=== PATIENT | male | born 1935 | race Caucasian/White ===

== ENCOUNTER 2021-05-12 13:07 | Inpatient (IN) | payer OTHER, MEDICARE ==
[~2021-05-12] VITALS: Ht 180.3 cm; Wt 125.1 kg
[~2021-05-12 13:07] MED LIST: ASPI81CH PO; ASPI81EC PO; CEPH500 PO; COENZYME Q-1030 MG PO; COLCHICINE0.6 MG PO; Coumadin4 MG PO; FISH1000 PO; HYDR1TAB94 PO; IBUP800 PO; INS70/30PN SC; INS70/30PN SUBQ; INSU7030P SUBQ; LOSA25 PO; METF500 PO; Omeprazole20 M1; PANT40 PO; RANI150 PO; SIMV10 PO; SITA100T2 PO; SOLI5 PO; TORS10 PO; UBID10 PO; UBID100 PO; Zofran Odt4 MG SL
[2021-05-12 13:38] LABS: BASOPHILS ABSOLUTE AUTO 0.05 K/mm3 (0.00-0.23); BASOPHILS PERCENT AUTO 1 % (0-2); EOSINOPHILS PERCENT AUTO 3 % (0-6); Hematocrit 39.5 % (37.0-53.0); Hemoglobin 13.6 g/dL (13.5-17.5); IMMATURE GRAN ABSOLUTE AUTO 0.03 K/mm3 (0.00-0.10); IMMATURE GRAN PERCENT AUTO 0 % (0-1); LYMPHOCYTES ABSOLUTE AUTO 2.97 K/mm3 (0.84-5.20); LYMPHOCYTES PERCENT AUTO 29 % (21-46); MONOCYTES ABSOLUTE AUTO 0.64 K/mm3 (0.16-1.47); MONOCYTES PERCENT AUTO 6 % (4-13); Mean Corpuscular HGB 33.4 pg (26.0-34.0); Mean Corpuscular HGB Conc 34.4 g/dL (31.5-36.5); Mean Corpuscular Volume 97 fL (80-100); Mean Platelet Volume 11.8 fL (9.1-12.4); NEUTROPHILS ABSOLUTE AUTO 6.21 K/mm3 (1.96-9.15); NEUTROPHILS PERCENT AUTO 61 % (41-73); Platelet Count 199 K/mm3 (150-400); RDW Coefficient Variation 13.5 % (11.7-14.2); RDW Standard Deviation 47.8 fL (35.1-46.3); Red Blood Cell Count 4.07 M/mm3 (4.30-5.90)
[2021-05-12 13:52] LABS: Alanine Aminotransfer (ALT/SGP 22 U/L (12-78); Albumin, Blood 3.4 g/dL (3.4-5.0); Albumin/Globulin Ratio 1.1 (0.8-1.8); Alk Phos 58 U/L (50-136); Anion Gap 5 mmol/L (6-16); Aspartate Aminotrans (AST/SGOT 11 U/L (12-37); Bilirubin, Total 0.6 mg/dL (0.1-1.0); Blood Urea Nitrogen 26 mg/dL (8-24); Bun/Creatinine Ratio 20.2 (12.0-20.0); CO2, Blood 27 mmol/L (21-32); Calcium, Blood 8.3 mg/dL (8.5-10.1); Chloride, Blood 108 mmol/L (98-108); Creatinine, Blood 1.29 mg/dL (0.60-1.20); Globulin, Blood 3.1 g/dL (2.2-4.0); Glomerular Filtration Rate 53 (60-); Glucose, Blood 92 mg/dL (70-99); Potassium, Blood 4.1 mmol/L (3.5-5.5); Sodium, Blood 140 mmol/L (136-145); Total Protein, Blood 6.5 g/dL (6.4-8.2); Troponin I <0.015 ng/mL (0.000-0.040)
[2021-05-12 14:32] LABS: International Normalized Ratio 2.31
[2021-05-12 14:41] LABS: Influenza A, PCR NEGATIVE (NEGATIVE); Influenza B, PCR NEGATIVE (NEGATIVE); Resp Syncytial Virus, PCR NEGATIVE (NEGATIVE); SARS-Cov-2 (COVID-19) PCR, MMC NEGATIVE (NEGATIVE)
[2021-05-12 15:22] LABS: Free Thyroxine 0.86 ng/dL (0.70-1.60); Thyroid Stimulating Hormone 3.04 uIU/mL (0.360-4.800)
--- NOTE | 2021-05-12 19:52 | NUR ---
ASSUMED CARE OF PT AT 1915. REPORT RECEIVED AT BEDSIDE. PT PRESENTS IN BED RIGHT IJ WITH TRANSVENOUS PACER ACCESS. NO HEMATOMA OR OOZING TO NOTE. PT ALERT AND ORIENTED. PLEASANT AND COOPERATIVE WITH CARE AND ASSESSMENT. DENIES CHEST PAIN OR PRESSURE. WILL REVIEW CHART AND PLAN OF CARE FOR THIS PT.
--- NOTE | 2021-05-13 | NUR ---
PT HAS BEEN TOUCHING THE INSERTION SITE OF HIS TRANSVENOUS PACER. DID NOTE THAT THE OPSITE OVER SITE WAS LIFTED. CLEANED SITE WITH CHLORAPREP, AND PLACED REINFORCEMENT OF TEGRADERM. HAD NOTICED PT WAS HAVE MORE EPISODES OF PACER NOT CAPTURING. DID INCREASE SETTINGS ON TRANSVENOUS WITHOUT MUCH RESULTS. DID CALL DR VALADEZ AND HE CAME TO ROOM. HE ADVANCED PACER WIRES AND INCREASED TRANSVENOUS PACER TO 70/5/7 WITH IMPROVEMENT IN CAPTURE. DID HAVE SOME UNCAPTURED SPIKES AND DR CALDWELL STATED THAT HE WAS OK WITH THIS LONG PT'S VITALS REMAINED STABLE. AT THIS TIME, VSS. PT ACKNOWLEDGES THAT HE NEEDS TO NOT TOUCH ANY OF THE WIRES.
[2021-05-13 05:43] LABS: BASOPHILS ABSOLUTE AUTO 0.05 K/mm3 (0.00-0.23); BASOPHILS PERCENT AUTO 1 % (0-2); EOSINOPHILS ABSOLUTE AUTO 0.23 K/mm3 (0.00-0.68); EOSINOPHILS PERCENT AUTO 2 % (0-6); Hematocrit 38.9 % (37.0-53.0); Hemoglobin 13.2 g/dL (13.5-17.5); IMMATURE GRAN ABSOLUTE AUTO 0.04 K/mm3 (0.00-0.10); IMMATURE GRAN PERCENT AUTO 0 % (0-1); LYMPHOCYTES ABSOLUTE AUTO 1.66 K/mm3 (0.84-5.20); LYMPHOCYTES PERCENT AUTO 15 % (21-46); MONOCYTES ABSOLUTE AUTO 0.72 K/mm3 (0.16-1.47); MONOCYTES PERCENT AUTO 7 % (4-13); Mean Corpuscular HGB 33.2 pg (26.0-34.0); Mean Corpuscular HGB Conc 33.9 g/dL (31.5-36.5); Mean Corpuscular Volume 98 fL (80-100); Mean Platelet Volume 11.6 fL (9.1-12.4); NEUTROPHILS ABSOLUTE AUTO 8.24 K/mm3 (1.96-9.15); NEUTROPHILS PERCENT AUTO 75 % (41-73); Platelet Count 171 K/mm3 (150-400); RDW Coefficient Variation 13.3 % (11.7-14.2); RDW Standard Deviation 47.5 fL (35.1-46.3); Red Blood Cell Count 3.97 M/mm3 (4.30-5.90); White Blood Cell Count 10.94 K/mm3 (4.00-11.30)
[2021-05-13 05:54] LABS: International Normalized Ratio 1.88; Prothrombin Time Results 18.9 Sec (9.7-11.5)
--- NOTE | 2021-05-13 06:10 | NUR ---
PT HAS CONTINUED WITH TRANSVENOUS PACER. HAS OCCASSIONAL MISSED CAPTURES. SEE CHART FOR EXAMPLES. DR VALADEZ AWARE. PT TO HAVE PACER PLACEMENT TODAY. VSS REMAIN STABLE THROUGHOUT THE NIGHT. TRANSVENOUS PACER REMAINS SET . PT REMAINS WITH SOME TENDERNESS AT INSERTION SITE. WILL CONTINUE TO MONITOR PT, AND WILL REPORT OFF TO ONCOMING RN.
[2021-05-13 06:14] LABS: Anion Gap 6 mmol/L (6-16); Blood Urea Nitrogen 23 mg/dL (8-24); Bun/Creatinine Ratio 20.7 (12.0-20.0); CO2, Blood 24 mmol/L (21-32); Calcium, Blood 8.1 mg/dL (8.5-10.1); Chloride, Blood 111 mmol/L (98-108); Creatinine, Blood 1.11 mg/dL (0.60-1.20); Glomerular Filtration Rate >60 (60-); Glucose, Blood 108 mg/dL (70-99); Magnesium, Blood 2.2 mg/dL (1.6-2.4); Potassium, Blood 4.2 mmol/L (3.5-5.5); Sodium, Blood 141 mmol/L (136-145); Troponin I <0.015 ng/mL (0.000-0.040)
--- NOTE | 2021-05-13 09:29 | NUR ---
ASSUMED CARE THIS AM. REPORT BEDSIDE. PT RESTING COMFORTABLE AND IN NO DISTRESS BEING TRANSV PACED AT 70, MA 3, SENCE 3. VITALS WNL. WILL CONTINUE TO MONITOR. DR ALBA BY TO SE PT WELL AND ORDER TO HOLD BREAKFAST THIS PACEMAKER PLACEMENT COULD BE THIS MORNING.
--- NOTE | 2021-05-13 11:52 | NUR ---
Pt. is a alert and sitting up watching television in his recliner. Pt. quickly displays unsettledness because he is hungry. Normalize the pt. experience and suggest there is a theraputic reason. Inquire about pts. morales experience. Explore issues of morales and belief. Pt. displayed evidence of reduced stress and verbalized his morales source. Prayed with pt. Pt. verbalized gratitude and shook my hand. Confirmed with ICU nurse that his imposed fasting was in preparation for a procedure, and that they were aware of the pts. discomfort.
--- NOTE | 2021-05-13 15:21 | NUR ---
pT TO PRECINCT COMMANDING OFFICER FOR PACER PLACEMENT AT 1500
--- NOTE | 2021-05-13 18:33 | NUR ---
PT RETURNED FROM EP LAB, SLEEPY AND IN GOOD SPIRITS. PT VITALS WNL, PACE SET AT RATE OF 60. PT IN A PACED RYH AT THIS TIME AND VITALS ARE WNL. WILL CONTINUE TO MONITOR
--- NOTE | 2021-05-13 20:00 | NUR ---
ASSUMED CARE OF PT AT 1915. REPORT RECEIVED AT BEDSIDE. PT PRESENTS IN BED. FIRST OF HIS QUESTIONS WAS TO WHEN HE WAS GOING TO BE ABLE TO EAT. TRAY WAS HELD SECONDARY TO PROCEDURE. WILL OBTAIN MEAL FOR PATIENT AT THIS TIME. PER MONITOR, PT BEING PACED MOST VENTRICULARLY, AND OCCASSIONAL ATRIAL PACING. PT STATES PACER SITE TENDER. PRESSURE DRESSING OVER SITE. PT REMINDED OF RESTRICTIONS TO MOVEMENT WITH LEFT ARM RELATED TO POST PACER PLACEMENT. PT VERBALIZES UNDERSTANDING. WILL CONTINUE TO MONITOR PT, WILL REIVEW CHART AND PLAN OF CARE FOR THIS PT.
--- NOTE | 2021-05-13 21:50 | NUR ---
PT'S VSS. CONTINUES WITH PACED RHYTHM. CALL TO DR CALDWELL WITH ORDERS FOR STATUS CHANGE TO PCU. THIS DISCUSSED WITH PT AND HE IS IN AGREEMENT. PT TRANSFERS TO PCU ROOM 2 VIA WHEELCHAIR. PT'S BELONGINGS TRANSFERRED WELL. REPORT WAS GIVEN TO LEONORA GALAN.
--- NOTE | 2021-05-14 05:07 | NUR ---
TELEMETRY INFORMED RN THAT AROUND 0200 PATIENT BEGAN HAVING PACEMAKER SPIKES WITHOUT A BEAT/QRS FOLLOWING. THIS WAS ALSO AROUND THE TIME PATIENT TRIED TO GET OOB UNASSISTED AND WAS USING HIS ARM THAT SLING IS ON HE IS FORGETFUL AT TIMES. POSITIONED SLING CORRECTLY AND ASSSITED TO BSC. HR DID DROP TO HIGH 40'S SHORTLY AFTER THIS FOR A MIN. CURRENT RATE OF 60 AND VSS. SOME BRUISING BELOW PRESSURE DRESSING NOTED. EKG DONE. DR. CAICEDO MADE AWARE OF THESE CHANGES. SENT PHOTO OF EKG AND PACEMAKER SITE. MD ORDERED REMOVAL OF PRESSURE DRESSING AND ICE TO BE APPLIED. SCANT DRIED DRAINAGE TO BANDAGE. EKG TO BE ORDERED PRN IF ANY OTHER CHANGES OCCUR. PATIENT RESTING COMFORTABLY AT THIS AND WILL CONTINUE TO MONIOTR.
[2021-05-14 05:23] LABS: International Normalized Ratio 1.31; Prothrombin Time Results 13.5 Sec (9.7-11.5)
--- NOTE | 2021-05-14 06:26 | NUR ---
SHIFT SUMMARY PATIENT TRANSFERRED FROM ICU AT APPROX. 2230 AND FOUND TO BE A&OX4 WITH SOME GENERALIZED WEAKNESS. PACER SITE TO LEFT CHEST WITH PRESSURE DRESSING IN PLACE UPON ARRIVAL NOW JUST DRESSING AND ICE PACK PER MD ORDER. BRUISING AROUND SITE BUT NO SWELLING.VSS. ON RA. REMAINED PACED WITH GOOD CAPTURE UNTIL AROUND 0200 WHEN PATIENT HAD ATTEMPTED TO LEAVE BED BY HIMSELF AND WAS USING LEFT ARM THAT WAS IN SLING. REMINDED NOT TO USE THIS ARM FREQUENTLY BUT CONTINUES TO FORGET. SEE PREVIOUS NOTES FOR PACER EVENT DETAILS. PAIN TO SITE AT TOLERABLE LEVEL AND REFUSED NEED FOR MEDICATION. DYSPNEA ON EXERTION NOTED. VOIDING WELL PER URINAL OR BSC. FREQUENCY AND URGENCY RELATED TO LASIX. A LITTLE UNSTEADY AT TIMES AND UP WITH ONE ASSIST AND WALKER IN ROOM. REMINDED TO CALL RN AND FALL PRECAUTIONS IN PLACE. DR. CHEN TO INFORM MED REPS OF NEED FOR PACER INTEROGATION TODAY. NO ACUTE CONCERNS AT THIS TIME. WILL CONTINUE PLAN OF CARE UNTIL REPORT GIVEN TO DAYSHIFT RN.
--- NOTE | 2021-05-14 11:46 | NUR ---
Pt. was sitting up in a recliner. Welcomed my visit. Pt. was unsettled that there was a problem with his pacemaker. Pt. assumes it was because he had moved his arm which was in a sling. Listened empathetically. Established rapport. Facilitated a life review. Explored pts. morales and belief. Pt. spoke about his morales. Prayed with pt. Pt. displayed evidence of engagement and agreement. Pt. verbalized gratitude for visit, and welcomed me to return.
--- NOTE | 2021-05-14 13:15 | NUR ---
UPDATE PT LEFT FOR PROCEDURE AT 1313 VIA HOSPITAL BED AND OCCOMPANIED BY 1 RN. PT ON RA. PT ABLE TO AMBULATE TO TOILET BEFORE LEAVING FOR PROCEDURE.
--- NOTE | 2021-05-14 15:26 | NUR ---
UPDATE PT ARRIVE FROM [employer]OL TEACHER AT 1530 OCCOMPANIED BY 2 RN. PT LETHARGIC FROM MEDICATIONS DURING PROCEDURE.
--- NOTE | 2021-05-14 16:01 | NUR ---
Initial Interview with [facility] [employer] Torch Solderer 1. Who did you speak with? Spoke with patient 2. What is the patient's prior level of functions? Patient lives independently with ex- (who uses a wheelchair and needs assistance with ADLs). He is able to completed ADLs with minimal assistance; uses a cane daily. Patient lives in a single story dwelling with a ramp at the front entrance. Patient is looking to hire a multimedia author caregiver in the home, he presently has a carton folder come in once a week to clean and do laundry, but he does majority of the laundry, housekeeping, and cooking meals. Patient has 12 grandkids total. His son lives in [place] and helps when needed. Patient has a stable support network. 3. Is the patient and/or family able to provide transportation to and from doctor's appointments and picking table worker prescriptions? 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 Does patient still drive? Yes 5. POA/PCP/NOK: NOK: Daughter Janiya [phone]/PCP [facility] Dr. Kelly Hanna 6. Discharge goals: TBD/Home/no preference for Home Health agency -Medication Management: self-management -Preferred Pharmacy: [facility] -Housekeeping need: patient performs cooking and cleaning at his residence; carton folder one day per week. 7. List barriers to discharge: None known at this time 8. Discharge Plan: Home/TBD 9. PCP Follow up appointment: Will be scheduled within seven calendar days of discharge 10. Other Notes: patient is a and has no service connected disability, but encouraged to apply for benefits.
--- NOTE | 2021-05-14 17:47 | NUR ---
SHIFT SUMMARY PT A/O X4 AND COOPERATIVE OF CARE. VSS THROUGHOUT SHIFT WITH O2 SATS >93% ON RA. PT WAS NPO FOR FIRST HALF OF SHIFT FOR PROCEDURE IN WIND FIELD MANAGER. PT RETURNED FROM PROCEDURE AND WAS LETHARGIC FROM MEDICATIONS GIVEN DURING PROCEDURE. PT REPORTED NAUSEA WHILE SHOULDER IMOBILIZER WAS BEING PLACED. EMESIS BAG GIVEN TO PT AND SUCTION HOOKED UP AND AT THE BEDSIDE, ZOFRAN GIVEN PER EMAR. SHOULDER IMOBILIZER IN PLACE. ICE PACKS ON PT SURGICAL SITE PER DR REQUEST. NO REPORT OF CHEST PAIN/PRESSURE THROUGHOUT SHIFT. NO REPORT OF OF DYSPNEA/SOB THROUGHOUT SHIFT.
[2021-05-15 05:34] LABS: International Normalized Ratio 1.11; Prothrombin Time Results 11.6 Sec (9.7-11.5)
--- NOTE | 2021-05-15 06:47 | NUR ---
SHIFT SUMMARY PATIENT FOUND TO BE A&OX4 WITH SOME GEN WEAKNESS. A LITTLE IRRITABLE WITH THE FREQUENT INTERUPTIONS OF SLEEP. VSS. REMAINED 100% PACED AT 60 BPM MOST OF SHIFT. DID NOTICE ON MORNING EKG MAYBE SOME UNDERLYING A FLUTTER/AFIB. VSS. ON RA. TOLERATING ADA DIET. IV ABX INFUSED PER ORDER. ICE AND PRESSURE BAG TO PACER SITE AND BRUISING IS STABLE. ARM IMMOBILIZER IN PLACE AND PATIENT MORE COMPLIANT WITH INSTRUCTIONS TONIGHT. VOIDING WELL PER URINAL. NO ACUTE CONCERNS AT THIS TIME. WILL CONTINUE PLAN OF CARE UNTIL REPORT GIVEN TO GUILLAUME LEA.
[2021-05-15] MEDS ORDERED: CEPH500 PO (13:05)
--- NOTE | 2021-05-15 15:30 | NUR ---
DISCHARGE UPDATE PT DISCHARGE PACKET GONE OVER WITH PT AND PT DAUGHTER AT 1500. PT DISCHARGED AT 1512 AND LEFT UNIT VIA WHEELCHAIR. PT ABLE TO TRANSFER SELF TO AND FROM WHEELCHAIR. PT DISCHARGE PACKET IN BAG ALONG WITH PT PERSONAL BELONGINGS.
[2021-05-16] MEDS ORDERED: DOCUZEN 8.6-501 EACH PO (18:52)
--- NOTE | 2021-05-17 08:24 | NUR ---
Per Dr. Pandya discharge appropriate. Patient was discharged on 05/15/21. Patient does not oppose discharge. Patient discharged to residence. Transportation provided by family. DME: patient has a cane he uses daily. Follow up appointments needed with cardiology/pacemaker clinic and Dr. Robb. [facility] will contact patient to schedule hospital follow-ups. Patient has a stable support network. No barriers to discharge.
== END 2021-05-15 15:15 | disposition home or self-care (01) | DRG 242 ==
LOC: ER 13:07 → MEDS 13:08 → ICUW 13:08 → PCU 05-13 21:49
PROVIDERS: Internal Medicine Cardiovascular Disease; Physician Assistant; ADMIT Internal Medicine
PROC: 5A1223Z Performance of Cardiac Pacing, Continuous (ICD-10-PCS; 2021-05-12)
PROC: 0JH606Z Insertion of Pacemaker, Dual Chamber into Chest Subcutaneous Tissue and Fascia, Open Approach (ICD-10-PCS; principal; 2021-05-13)
PROC: 02H64JZ Insertion of Pacemaker Lead into Right Atrium, Percutaneous Endoscopic Approach (ICD-10-PCS; 2021-05-13)
PROC: 02HK4JZ Insertion of Pacemaker Lead into Right Ventricle, Percutaneous Endoscopic Approach (ICD-10-PCS; 2021-05-13)
PROC: 5A1223Z Performance of Cardiac Pacing, Continuous (ICD-10-PCS; 2021-05-13)
PROC: 02WA0MZ Revision of Cardiac Lead in Heart, Open Approach (ICD-10-PCS; 2021-05-14)
DX: I44.2 Atrioventricular block, complete (principal); I50.33 Acute on chronic diastolic (congestive) heart failure; E11.9 Type 2 diabetes mellitus without complications; Z20.822 Contact with and (suspected) exposure to COVID-19; Z53.20 Procedure and treatment not carried out because of patient's decision for unspecified reasons; E78.5 Hyperlipidemia, unspecified; M10.9 Gout, unspecified; M54.50 Low back pain, unspecified; G89.29 Other chronic pain; E66.9 Obesity, unspecified; F17.210 Nicotine dependence, cigarettes, uncomplicated; K21.9 Gastro-esophageal reflux disease without esophagitis; N40.0 Benign prostatic hyperplasia without lower urinary tract symptoms; I08.1 Rheumatic disorders of both mitral and tricuspid valves; I48.0 Paroxysmal atrial fibrillation; I11.0 Hypertensive heart disease with heart failure; I48.92 Unspecified atrial flutter; Z68.37 Body mass index [BMI] 37.0-37.9, adult; Z88.2 Allergy status to sulfonamides; Z88.8 Allergy status to other drugs, medicaments and biological substances; Z79.4 Long term (current) use of insulin; Z79.82 Long term (current) use of aspirin; Z79.899 Other long term (current) drug therapy
CPT/HCPCS: 0241U; 33208; 33210; 33215; 36415; 71045; 71046; 76937; 80048; 80053; 82947; 83735; 83880; 84439; 84443; 84484; 85025; 85610; 93005; 93010; 99152; 99153; 99285-25; A9270; C1769; C1781; C1785; C1894; C1898; C8929; G0378; J0690; J1580; J1644; J1650; J1940; J2250; J2405; J3010; J7030; J7040; J7050; Q9957; Q9967

== ENCOUNTER 2021-05-16 16:05 | Emergency (ER) | payer OTHER, MEDICARE ==
[~2021-05-16] VITALS: Ht 180.3 cm; Wt 122.5 kg
[2021-05-16 16:56] LABS: BASOPHILS PERCENT AUTO 1 % (0-2); EOSINOPHILS ABSOLUTE AUTO 0.48 K/mm3 (0.00-0.68); EOSINOPHILS PERCENT AUTO 3 % (0-6); Hematocrit 42.1 % (37.0-53.0); Hemoglobin 14.5 g/dL (13.5-17.5); IMMATURE GRAN ABSOLUTE AUTO 0.06 K/mm3 (0.00-0.10); IMMATURE GRAN PERCENT AUTO 0 % (0-1); LYMPHOCYTES ABSOLUTE AUTO 2.93 K/mm3 (0.84-5.20); LYMPHOCYTES PERCENT AUTO 21 % (21-46); MONOCYTES PERCENT AUTO 8 % (4-13); Mean Corpuscular HGB Conc 34.4 g/dL (31.5-36.5); Mean Corpuscular Volume 96 fL (80-100); Mean Platelet Volume 11.5 fL (9.1-12.4); NEUTROPHILS ABSOLUTE AUTO 9.56 K/mm3 (1.96-9.15); NEUTROPHILS PERCENT AUTO 67 % (41-73); Platelet Count 221 K/mm3 (150-400); RDW Coefficient Variation 13.6 % (11.7-14.2); RDW Standard Deviation 47.8 fL (35.1-46.3); Red Blood Cell Count 4.39 M/mm3 (4.30-5.90); White Blood Cell Count 14.23 K/mm3 (4.00-11.30)
[2021-05-16 17:08] LABS: Albumin, Blood 3.2 g/dL (3.4-5.0); Albumin/Globulin Ratio 0.9 (0.8-1.8); Bilirubin, Total 0.5 mg/dL (0.1-1.0); Bun/Creatinine Ratio 17.1 (12.0-20.0); Calcium, Blood 8.3 mg/dL (8.5-10.1); Creatinine, Blood 1.23 mg/dL (0.60-1.20); Globulin, Blood 3.5 g/dL (2.2-4.0); Total Protein, Blood 6.7 g/dL (6.4-8.2)
[2021-05-16] MEDS ORDERED: DOCUZEN 8.6-501 EACH PO (18:52)
== END 2021-05-16 20:25 | disposition home or self-care (01) ==
LOC: ER 16:05
PROVIDERS: Student in an Organized Health Care Education/Training Program
DX: K59.00 Constipation, unspecified (principal); Z88.2 Allergy status to sulfonamides; Z88.8 Allergy status to other drugs, medicaments and biological substances; K21.9 Gastro-esophageal reflux disease without esophagitis; E78.5 Hyperlipidemia, unspecified; E11.9 Type 2 diabetes mellitus without complications; Z87.891 Personal history of nicotine dependence
CPT/HCPCS: 74177; 80053; 83690; 85025; 99284-25; Q9967

== ENCOUNTER 2021-07-10 09:41 | Emergency (ER) | payer MEDICARE, OTHER ==
[~2021-07-10] VITALS: Ht 180.3 cm; Wt 112.5 kg
[~2021-07-10 09:41] MED LIST changes: +DOCUZEN 8.6-501 EACH PO; +FISH OIL 1,2001 EAC7 PO
[2021-07-10] MEDS ORDERED: Ranitidine HCl150 M1 PO (10:02)
[2021-07-10 10:03] LABS: BASOPHILS ABSOLUTE AUTO 0.09 K/mm3 (0.00-0.23); BASOPHILS PERCENT AUTO 1 % (0-2); EOSINOPHILS ABSOLUTE AUTO 0.24 K/mm3 (0.00-0.68); EOSINOPHILS PERCENT AUTO 2 % (0-6); Hematocrit 43.4 % (37.0-53.0); Hemoglobin 15.3 g/dL (13.5-17.5); IMMATURE GRAN ABSOLUTE AUTO 0.04 K/mm3 (0.00-0.10); IMMATURE GRAN PERCENT AUTO 0 % (0-1); LYMPHOCYTES ABSOLUTE AUTO 2.21 K/mm3 (0.84-5.20); LYMPHOCYTES PERCENT AUTO 21 % (21-46); MONOCYTES ABSOLUTE AUTO 0.67 K/mm3 (0.16-1.47); MONOCYTES PERCENT AUTO 6 % (4-13); Mean Corpuscular HGB 33.6 pg (26.0-34.0); Mean Corpuscular HGB Conc 35.3 g/dL (31.5-36.5); Mean Corpuscular Volume 95 fL (80-100); Mean Platelet Volume 11.3 fL (9.1-12.4); NEUTROPHILS ABSOLUTE AUTO 7.17 K/mm3 (1.96-9.15); NEUTROPHILS PERCENT AUTO 69 % (41-73); Platelet Count 216 K/mm3 (150-400); Red Blood Cell Count 4.56 M/mm3 (4.30-5.90); White Blood Cell Count 10.42 K/mm3 (4.00-11.30)
[2021-07-10] MEDS ORDERED: NOVOLOG MI100 UNIT/2 SC (10:03)
[2021-07-10 10:23] LABS: International Normalized Ratio 2.81; Prothrombin Time Results 27.6 Sec (9.7-11.5)
[2021-07-10 10:29] LABS: Anion Gap 6 mmol/L (6-16); Blood Urea Nitrogen 31 mg/dL (8-24); Bun/Creatinine Ratio 27.7 (12.0-20.0); CO2, Blood 24 mmol/L (21-32); Calcium, Blood 8.3 mg/dL (8.5-10.1); Chloride, Blood 107 mmol/L (98-108); Creatinine, Blood 1.12 mg/dL (0.60-1.20); Glomerular Filtration Rate >60 (60-); Glucose, Blood 290 mg/dL (70-99); Potassium, Blood 4.1 mmol/L (3.5-5.5); Sodium, Blood 137 mmol/L (136-145)
[2021-07-10 11:03] LABS: Source, Urine Clean Catch
[2021-07-10 11:17] LABS: Bilirubin, Urine Neg (Neg); Blood, Urine 5+ (Neg); Glucose Qualitative, Urine 4+ (Neg); Ketones, Urine Neg (Neg); Leukocyte Esterase, Urine 2+ (Neg); Nitrite, Urine Neg (Neg); Protein, Urine 2+ (Neg); Specific Gravity, Urine 1.015 (1.003-1.022); Urobilinogen, Urine NORM (Normal)
[2021-07-10 11:28] LABS: Appearance, Urine Hazy (Clear); Color, Urine Pale Yellow (P-Yellow)
[2021-07-10 11:29] LABS: Bacteria Mod /hpf; Red Blood Cells, Urine 25-50 /hpf (0-2); Squamous Epithelial Cells Rare /hpf (Few)
[2021-07-10 11:30] LABS: Mucus Light (0-Heavy); Yeast/Fungi Urine Rare /hpf
== END 2021-07-10 12:08 | disposition home or self-care (01) ==
LOC: ER 09:41
PROVIDERS: Emergency Medicine
DX: R31.9 Hematuria, unspecified (principal); K21.9 Gastro-esophageal reflux disease without esophagitis; I48.91 Unspecified atrial fibrillation; E11.9 Type 2 diabetes mellitus without complications; E78.5 Hyperlipidemia, unspecified; Z88.2 Allergy status to sulfonamides; Z88.8 Allergy status to other drugs, medicaments and biological substances; Z79.84 Long term (current) use of oral hypoglycemic drugs; Z79.4 Long term (current) use of insulin; Z79.899 Other long term (current) drug therapy; Z79.82 Long term (current) use of aspirin; Z79.01 Long term (current) use of anticoagulants
CPT/HCPCS: 36415; 80048; 81001; 85025; 85610; 87077; 87086; 87186; 99283

== ENCOUNTER 2022-05-08 13:36 | Inpatient (IN) | payer OTHER, MEDICARE ==
[~2022-05-08] VITALS: Ht 188 cm; Wt 95.2 kg
[~2022-05-08 13:36] MED LIST changes: +NOVOLOG MI100 UNIT/2 SC; +Ranitidine HCl150 M1 PO
[2022-05-08 14:07] LABS: BASOPHILS ABSOLUTE AUTO 0.08 K/mm3 (0.00-0.23); BASOPHILS PERCENT AUTO 1 % (0-2); EOSINOPHILS PERCENT AUTO 2 % (0-6); Hematocrit 41.1 % (37.0-53.0); Hemoglobin 14.5 g/dL (13.5-17.5); IMMATURE GRAN ABSOLUTE AUTO 0.09 K/mm3 (0.00-0.10); IMMATURE GRAN PERCENT AUTO 1 % (0-1); LYMPHOCYTES ABSOLUTE AUTO 2.35 K/mm3 (0.84-5.20); LYMPHOCYTES PERCENT AUTO 24 % (21-46); MONOCYTES ABSOLUTE AUTO 1.03 K/mm3 (0.16-1.47); MONOCYTES PERCENT AUTO 11 % (4-13); Mean Corpuscular HGB 33.3 pg (26.0-34.0); Mean Corpuscular HGB Conc 35.3 g/dL (31.5-36.5); Mean Corpuscular Volume 94 fL (80-100); Mean Platelet Volume 11.6 fL (9.1-12.4); NEUTROPHILS PERCENT AUTO 61 % (41-73); Platelet Count 214 K/mm3 (150-400); RDW Coefficient Variation 13.2 % (11.7-14.2); RDW Standard Deviation 45.9 fL (35.1-46.3); Red Blood Cell Count 4.36 M/mm3 (4.30-5.90); White Blood Cell Count 9.65 K/mm3 (4.00-11.30)
[2022-05-08 14:16] LABS: International Normalized Ratio 1.11; Prothrombin Time Results 11.6 Sec (9.7-11.5)
[2022-05-08 14:20] LABS: Albumin, Blood 3.2 g/dL (3.4-5.0); Bilirubin, Total 0.4 mg/dL (0.1-1.0); Bun/Creatinine Ratio 22.4 (12.0-20.0); Calcium, Blood 8.7 mg/dL (8.5-10.1); Creatinine, Blood 1.25 mg/dL (0.60-1.20); Globulin, Blood 3.2 g/dL (2.2-4.0); Potassium, Blood 4.3 mmol/L (3.5-5.5); Total Protein, Blood 6.4 g/dL (6.4-8.2)
[2022-05-08 14:37] LABS: Source, Urine Voided
[2022-05-08 14:43] LABS: Thyroid Stimulating Hormone 2.28 uIU/mL (0.360-4.800)
[2022-05-08 14:43] LABS: Appearance, Urine Clear (Clear); Bilirubin, Urine Neg (Neg); Blood, Urine Neg (Neg); Glucose Qualitative, Urine Neg (Neg); Ketones, Urine Neg (Neg); Leukocyte Esterase, Urine Neg (Neg); Nitrite, Urine Neg (Neg); Protein, Urine Neg (Neg); Specific Gravity, Urine 1.015 (1.003-1.022); Urobilinogen, Urine NORM (Normal)
[2022-05-08 14:57] LABS: Color, Urine Pale Yellow (P-Yellow)
--- NOTE | 2022-05-09 04:03 | NUR ---
Patient resting in bed no changes in neuro status overnight.
[2022-05-09 06:28] LABS: Hematocrit 39.6 % (37.0-53.0); Mean Corpuscular HGB 32.9 pg (26.0-34.0); Mean Corpuscular HGB Conc 35.4 g/dL (31.5-36.5); Mean Corpuscular Volume 93 fL (80-100); Mean Platelet Volume 11.6 fL (9.1-12.4); Platelet Count 194 K/mm3 (150-400); RDW Coefficient Variation 13.3 % (11.7-14.2); RDW Standard Deviation 45.3 fL (35.1-46.3); Red Blood Cell Count 4.25 M/mm3 (4.30-5.90)
[2022-05-09 06:46] LABS: Bun/Creatinine Ratio 26.4 (12.0-20.0); Calcium, Blood 8.3 mg/dL (8.5-10.1); Creatinine, Blood 0.95 mg/dL (0.60-1.20); Potassium, Blood 3.8 mmol/L (3.5-5.5)
--- NOTE | 2022-05-09 12:09 | NUR ---
PT PAIN INCREASINGLY WORSE IN NECK AND HEAD. PT UP TO BEDSIDE COMODE WITH 2 PERSON ASSIST AND GAIT BELT. PT STATED THAT HE WAS DIZZY AND BEGAN TO FALL OVER WHILE ON COMODE. 3RD PERSON CALLED TO ROOM FOR HELP. PT MOVED BACK TO BED. HOB AT 30 DEGREES. MD NOTIFIED ABOUT INCREASE IN PAIN, DIZZINESS, INCREASE I WEAKNESS. SEE EMAR FOR MD ORDER. CLARIFIED WITH MD THAT THERE ARE NO OTHER ORDERS AT THIS TIME.
--- NOTE | 2022-05-09 14:47 | NUR ---
TRANSFER- TRANSFER- PT ALERT AND ORIENTED X3 AT START OF SHIFT. PT BECAME INCREASINGLY DIZZY AND IN PAIN. MD NOTIFIED. SEE NOTE. PT TRANSFERED TO ICU FOR HIGHER CARE. SEE ORDERS. PT IS ALERT AND ORIENTED TO SELF BUT FORGETFUL OF SITUATION AND PLACE. PT STATES THAT HE FELL AND HIT HIS HEAD ON THE FIREPLACE. FAMILY STATED THAT HE FELL DOWN THE STAIRS BACKWARDS BUT DID NOT HIT THE FIREPLACE. HE FORGETS THAT HE IS IN THE HOSPITAL AND THAT HE ATE BREAKFAST. PT IS CALM AND COOPERATIVE WITH STAFF AND CARES. PT TREATED FOR PAIN PER THE EMAR BUT IS STILL CRYING OUT IN PAIN WHEN REPOSITIONED. HOB AT 30 DEGREES. REPORT GIVEN TO LEONORA JODRAN ICU. PT DAUGHTER NOTIFIED OF TRANSER.
--- NOTE | 2022-05-09 17:52 | NUR ---
ASSUMPTION OF CARE/ UPDATE PT ADMITTED TO ICU ROOM 2 FROM MEDICAL FLOOR FOR CLOSER OBSERVATION RELATED TO A SUBDURAL HEMATOMA INCREASING IN SIZE. UPON ARRIVAL TO THE UNIT, PT TRANSFERRED TO ICU BED VIA SLIDER SHEET, SAT UPRIGHT IN BED. PT SLUGGISH TO RESPOND, COMMUNICATING WITH SHORT PHRASES, C/O SEVERE HEAD AND NECK PAIN. EYES CLOSED, OPENING TO STIMULI, PUPILS PINPOINT (RECENTLY MEDICATED WITH MORPHINE). WEAKLY PEREZ, PULSE/ SENSORY INTACT. BP WNL. PACED RYTHM ON HEALTH CARE ASSISTANT. THIS NURSE CONTACTED DR RASHEED FOR UPDATE ON PLAN, CLOSE OBSERVATION AT THIS TIME, HOLDING WARFARIN, GOAL OF SBP <160, FREQUENT NEURO CHECKS. PTS MARCK, MONCHO RUBY CONTACTED VIA PHONE AND UPDATED OF PTS DECLINE AND ICU ADMISSION. MONCHO ADVISED THIS NURSE THAT PT IS FORGETFUL AT TIMES BUT COMMUNICATIVE AND COMPLETES ADLS AT BASELINE. AFTER SPEAKING WITH MONCHO, THIS NURSE REASSESSED PT WHO SLOWLY BECAME MUCH MORE INTERACTIVE WITH STAFF, FOLLOWING COMMANDS. STATED HE WAS AT THE HOSPITAL BECAUSE HE FELL AND HAS A BLEED IN HIS HEAD. PT JOKING WITH STAFF, REQUESTING URINAL, MUCH MORE COHERENT. ASKING FOR WATER, TOLERATING WELL. CONTINUES TO C/O PAIN IN HEAD AND NECK. WILL MONITOR CLOSELY.
--- NOTE | 2022-05-09 18:37 | NUR ---
UPDATE SPOKE WITH PTS DAUGHTER, MARCK IVAN, UPDATED HER OF CURRENT CONDITION AND PLAN. MONCHO AGREES WITH CURRENT PLAN BUT IF HE DECLINES SHE WOULD LIKE HIM TO RECEIVE INVASIVE PROCEDURES TO RELIEVE THE HEMORRHAGE.
--- NOTE | 2022-05-09 18:58 | NUR ---
OMNCHO VIEIRA) TOOK HOME PTS WATCH, WALLET, AND KEYS.
--- NOTE | 2022-05-09 20:43 | NUR ---
PATIENT SLEEPING AWAKENS TO VERBAL STIMULI. LOOKING TO RIGHT SIDE TO ANY STIMULI. WHEN ASKED TO LOOK TO HIS LEFT PATIENT ABLE TO TURN HIS HEAD TO THE LEFT AND MAKING GOOD EYE CONTACT. WHEN CHECKING STRENGTH PATIENT NEEDING REMINDING TO USE LEFT SIDE, STRENGTHS EQUAL WHEN HE DOES USE THE LEFT SIDE. PATIENT C/O NECK AND HEAD PAIN, ICE PACK PLACED TO BACK OF NECK. SMALL AMT OF BRUISING AND SWELLING SEEN TO BELOW RIGHT EYE. PATIENT SLIGHTLY FORGETFUL, THINKING HE WAS AT HOME IN BED, ABLE TO REMEMBER THAT HE WAS AT [facility] APROX 10 MIN AFTER REORIENTATION. PUPILS BOTH PINPOINT. ALEXIS PO WITHOUT DIFFICULTY. USING URINAL WITH MIN ASSISTING
--- NOTE | 2022-05-10 02:54 | NUR ---
PATIENT MORE AWAKE, CONTINUES TO HAVE SLIGHT CONFUSION, NEEDING REMINDING ON HOW TO USE CALL LIGHT. PATIENT USING LEFT ARM MORE. ABLE TO GIVE SELF DRINKS OF WATER AND DIET PEPSI. CONTINUES TO NEED ASSISTANCE WITH USING THE URINAL. PATIENT VERBALIZED THAT HIS PAIN TO HIS NECK AND HEAD IS GONE. ICE PACK REMOVED.
--- NOTE | 2022-05-10 05:17 | NUR ---
SUMMARY PATIENT APPEARS TO USE LEFT SIDE A LITTLE BIT MORE THIS MORNING, YET WITH REPOSITIONING AND NEURO CHECKS LEFT SIDE IS SLOWER THAN RIGHT BUT STRENGTH IS EQUAL. PUPILS REMAIN EQUAL AND 2 MM. PATIENT CONTINUES TO BE FORGETFUL AT TIMES, BUT CONTINUES TO REORIENTED EASILY.ICUE PACK TO NECK HELPING WITH NECK PAINN AND HEADACHE. TYLENOLOL GIVEN ONCE FOR HEADACHE WITH GOOD RELIEF.
--- NOTE | 2022-05-10 06:25 | NUR ---
BIOX 99% ON 2L/NC. PLACED ON RA BIOX REMAINING 96%
--- NOTE | 2022-05-10 06:54 | NUR ---
PATIENT BACK FROM CT. PATIENT ALEXIS WELL.
[2022-05-10 08:21] LABS: BASOPHILS ABSOLUTE AUTO 0.04 K/mm3 (0.00-0.23); BASOPHILS PERCENT AUTO 0 % (0-2); EOSINOPHILS PERCENT AUTO 0 % (0-6); Hematocrit 38.3 % (37.0-53.0); Hemoglobin 13.8 g/dL (13.5-17.5); IMMATURE GRAN ABSOLUTE AUTO 0.03 K/mm3 (0.00-0.10); IMMATURE GRAN PERCENT AUTO 0 % (0-1); LYMPHOCYTES ABSOLUTE AUTO 1.87 K/mm3 (0.84-5.20); LYMPHOCYTES PERCENT AUTO 17 % (21-46); MONOCYTES ABSOLUTE AUTO 1.01 K/mm3 (0.16-1.47); MONOCYTES PERCENT AUTO 9 % (4-13); Mean Corpuscular HGB 33.4 pg (26.0-34.0); Mean Corpuscular Volume 93 fL (80-100); Mean Platelet Volume 11.4 fL (9.1-12.4); NEUTROPHILS ABSOLUTE AUTO 8.18 K/mm3 (1.96-9.15); NEUTROPHILS PERCENT AUTO 73 % (41-73); Platelet Count 207 K/mm3 (150-400); RDW Coefficient Variation 13.1 % (11.7-14.2); RDW Standard Deviation 44.9 fL (35.1-46.3); Red Blood Cell Count 4.13 M/mm3 (4.30-5.90); White Blood Cell Count 11.13 K/mm3 (4.00-11.30)
--- NOTE | 2022-05-10 08:23 | NUR ---
AM NOTE... ASSUMED CARE OF PT AT 0700. THE PT IS A&Ox4 WITH MOMENTS OF FORGETFULLNESS BUT IS EASILY RE-ORIENTED. THE PT'S PUPILS ARE PINPOINT AND EQUAL. PT IS NOTED TO HAVE LEFT SIDED NEGLECT, HE NEEDS SEVERAL PROMPTS TO FOLLOW DIRECTIONS WITH THE LEFT SIDE, LEFT SIDE IS NOTED TO BE SLIGHTLY MORE WEAK THAN THE RIGHT. HE ALSO C/O OF HIS LEFT LEG "FEELING HEAVY." THE PT C/O OF NECK PAIN WITH ANY MOVEMENT OF HIS NECK. SMILE IS NORMAL. THE PT'S VS STABLE SBPs HAVE BEEN IN THE 130'S-140'S. HE IS PACED IN THE 60'S WITH UNDERLYING AFIB. THE RLE HAS TRACE EDEMA NOTED THE LLE HAS 1+. L/S CLEAR T/O ON RA THE PT NEEDS 2L NC WHILE SLEEPING. BT PRESENT AND NORMOACTIVE, ABD IS SOFT AND NONTENDER TO PALPATION. WILL CONTINUE TO MONITOR.
[2022-05-10 09:04] LABS: Alanine Aminotransfer (ALT/SGP 17 U/L (12-78); Albumin, Blood 2.7 g/dL (3.4-5.0); Albumin/Globulin Ratio 0.8 (0.8-1.8); Alk Phos 60 U/L (50-136); Anion Gap 6 mmol/L (6-16); Aspartate Aminotrans (AST/SGOT <3 U/L (12-37); Bilirubin, Total 0.7 mg/dL (0.1-1.0); Blood Urea Nitrogen 23 mg/dL (8-24); Bun/Creatinine Ratio 24.5 (12.0-20.0); CO2, Blood 27 mmol/L (21-32); Calcium, Blood 8.2 mg/dL (8.5-10.1); Chloride, Blood 104 mmol/L (98-108); Creatinine, Blood 0.94 mg/dL (0.60-1.20); Globulin, Blood 3.3 g/dL (2.2-4.0); Glomerular Filtration Rate 78 (60-); Glucose, Blood 168 mg/dL (70-99); Potassium, Blood 3.9 mmol/L (3.5-5.5); Sodium, Blood 137 mmol/L (136-145)
--- NOTE | 2022-05-10 11:56 | NUR ---
PT UPDATE.... STARTING AT APROX 1100 THE PT STARTED MOANING AND MOVING AROUND IN THE BED, WHEN ASKED WHAT WAS WRONG THE PT STATED THAT HIS HEAD AND NECK "HURT WAY WORSE THAN BEFORE" AND THAT HE FELT NAUSEOUS AND DIZZY. THIS RN CALLED DR. RASHEED AND UPDATED HIM ON THE CHANGE IN THE PT'S CONDTION. NO NEW ORDERS WERE GIVEN. THE PT'S NEW CT SCAN OF THE [facility] WILL CONTINUE TO MONITOR.
--- NOTE | 2022-05-10 16:57 | NUR ---
PT UPDATE.... PT WAS TAKEN FOR A HEAD CTA AROUND 1530 WITH NO ISSUES. ONCE BACK IN HIS ROOM THE PT STARTED TO HAVE VISULA HALLUCINATIONS THAT "MOHSEN RITO" WAS IN HIS ROOM ALONG WITH "A LITTLE GIRL WITH RED HAIR SUCKING HER THUMB." THE PT'S NECK AND HEAD SEEMS TO HURT MORE THAN IT DID EARLIER IN THIS SHIFT. PROVIDER WAS MADE AWARE. SEVERAL OF THE PT'S FAMILY MEMBERS WERE UPDATED BY THIS RN TODAY, FROM NOW ON MONCHO HIS DAUGHTER IS THE FIXTURE FABRICATOR REPAIRER. WILL CONTINUE TO MONITOR.
[2022-05-10 17:33] LABS: Source, Urine Foley catheter
[2022-05-10 17:48] LABS: Appearance, Urine Clear (Clear); Bilirubin, Urine Neg (Neg); Blood, Urine Neg (Neg); Color, Urine Yellow (P-Yellow); Glucose Qualitative, Urine Neg (Neg); Ketones, Urine Neg (Neg); Leukocyte Esterase, Urine Neg (Neg); Nitrite, Urine Neg (Neg); Protein, Urine Neg (Neg); Urobilinogen, Urine NORM (Normal)
--- NOTE | 2022-05-10 18:02 | NUR ---
SHIFT SUMMARY.... THE PT CONTINUES TO HAVE INTERMITTENT VISUAL HALLUCINATIONS AND TALKING TO "PEOPLE IN THE ROOM." THE PT'S VS CONTINUE TO BE STABLE. LEFT SIDED NEGLECT AND WEAKNESS IS MORE PRONOUNCED THIS EVENING. DR. RASHEED SPOKE WITH [facility] NEURO PROVIDER AND PER THE CTA RESULTS HE IS NOT A SURGICAL CANDITATE. DR. RASHEED SPOKE WITH THE PT'S DAUGHTER AND MARCK IVAN. PALLIATIVE CARE IS ALSO ON THE CASE. A DAMICO WAS PLACED D/T URINARY RETENTION AND DISCOMFORT FROM THE PT. UA WITH CULTURE IF NEEDED WAS SENT TO THE LAB. CALL LIGHT IN REACH WILL CONTINUE TO MONITOR UNTIL REPORT IS GIVEN TO ONCOMING RN.
--- NOTE | 2022-05-10 18:38 | NUR ---
Dr. Huerta called pt's family this evening to discuss pt's condition. His subdural hematoma is worsening, and CT confirms this. Pt's daughter Janiya is NOK, and she changed pt's code status to DNR to align with his wishes. gave v/o for this. POLST filled out, to be signed by Dr. Huerta tomorrow.
--- NOTE | 2022-05-10 19:13 | NUR ---
PATIENT AWAKE EATING BANANA MILKSHAKE WITH DAUGHTERS ASSISTANCE, WITHOUT DIFFICULTY. ANSWERING QUESTIONS APPROPRIATELY, YET IS FORGETFUL. LEFT SIDE NEGLECT CONTINUES, NEEDING REMINDING TO USE HIS LEFT ARM, WHEN USING SUPERVISOR PACKING ROOM AND STRENGTHS ARE EQUAL.
--- NOTE | 2022-05-11 06:54 | NUR ---
SUMMARY PATIENT SLEEPING OFF AND ON T/O NIGHT. WAS EXTREMLY RESTLESS EARLY IN THE NIGHT WANTING TO GET UP TO TOILET. NEEDING FREQUENT REMINDING OF THE RISK OF PASSING OUT AND HITTING HEAD AGAIN DUE TO CONTINUED BLEED IN BRAIN. PATIENT PASSING FLATUS, NO BM. PATIENT CONTINUES TO HAVE LEFT SIDE NEGLECT, STRENGTHS REMAIN EQUIL. PUPILS REMAIN PINPOINT.
[2022-05-11 08:29] LABS: BASOPHILS ABSOLUTE AUTO 0.09 K/mm3 (0.00-0.23); BASOPHILS PERCENT AUTO 1 % (0-2); EOSINOPHILS ABSOLUTE AUTO 0.42 K/mm3 (0.00-0.68); EOSINOPHILS PERCENT AUTO 3 % (0-6); Hematocrit 39.2 % (37.0-53.0); IMMATURE GRAN ABSOLUTE AUTO 0.05 K/mm3 (0.00-0.10); IMMATURE GRAN PERCENT AUTO 0 % (0-1); LYMPHOCYTES ABSOLUTE AUTO 3.03 K/mm3 (0.84-5.20); LYMPHOCYTES PERCENT AUTO 24 % (21-46); MONOCYTES ABSOLUTE AUTO 0.98 K/mm3 (0.16-1.47); MONOCYTES PERCENT AUTO 8 % (4-13); Mean Corpuscular HGB 33.3 pg (26.0-34.0); Mean Corpuscular HGB Conc 35.7 g/dL (31.5-36.5); Mean Corpuscular Volume 93 fL (80-100); NEUTROPHILS ABSOLUTE AUTO 8.18 K/mm3 (1.96-9.15); NEUTROPHILS PERCENT AUTO 64 % (41-73); Platelet Count 197 K/mm3 (150-400); RDW Coefficient Variation 13.4 % (11.7-14.2); RDW Standard Deviation 45.5 fL (35.1-46.3); White Blood Cell Count 12.75 K/mm3 (4.00-11.30)
[2022-05-11 08:40] LABS: Albumin, Blood 2.7 g/dL (3.4-5.0); Albumin/Globulin Ratio 0.8 (0.8-1.8); Bilirubin, Total 0.5 mg/dL (0.1-1.0); Bun/Creatinine Ratio 25.5 (12.0-20.0); Calcium, Blood 8.1 mg/dL (8.5-10.1); Creatinine, Blood 0.98 mg/dL (0.60-1.20); Globulin, Blood 3.3 g/dL (2.2-4.0); Potassium, Blood 3.8 mmol/L (3.5-5.5)
--- NOTE | 2022-05-11 08:41 | NUR ---
AM NOTE... ASSUMED CARE OF PT AT 0700, THE PT IS A&Ox3 WITH FORGETFULLNESS AT TIMES. HE IS C/O OF MORE PAIN TO HIS HEAD AND NECK. HE IS MOANING AND SAYING "OH GOD OH GOD JUST PUT A BULLET IN ME." THIS RN MEDICATED HIM FOR PAIN PER EMAR. HE CONTINUES TO BE PACED IN THE 60'S. BP STABLE. L/S CLEAR T/O ON 2L NC WHILE SLEEPING. BT PRESENT AND HYPOACTIVE ABD IS SOFT AND NONTENDER TO PALPATION. THE PT'S DAMICO IS PATENT AND DRAINING TO GRAVITY. WILL CONTINUE TO MONITOR.
--- NOTE | 2022-05-11 14:36 | NUR ---
"Spiritual Care Visit | Pt. & family - Palliative Nurse request Pt. is awake in bed, with niece present went I entered the room. Pt. displayed evidence of discomfort, but is generally pleasant and displays evidence of a sense of humor. Facilitated a brief life review and established rapport. Pt. verbalized gratitude for the spiritual care visit. Afterward I went down to the ICU lounge. Pts. [id number] is present. Through empathitic listening rapport is established. JOSE CRUZ verbalizes that her (Pts. son) is having the hardest time accepting the Pts. condition. JOSE CRUZ verbalized gratitude for the visit, and welcomed this concrete polisher be available to the pt. and family."
--- NOTE | 2022-05-11 17:23 | NUR ---
SHIFT SUMMARY.... NO ACUTE NEGATIVE CHANGES NOTED THIS SHIFT. THE PT WAS TAKEN FOR ANOTHER HEAD CT RESULTS PENDING. THE PT CONTINUES TO C/O OF SEVERE HEAD AND NECK PAIN AND HIS EYES ARE VERY SENSITIVE TO LIGHT. NO CHANGES NOTED TO THE PT'S LEFT SIDED NEGELECT. THE PT HAD A SWALLOW EVALUATION DONE THIS AFTERNOON, HE IS MECH SOFT WITH THIN LIQUIDS LONG HE IS ALERT AND ABLE TO SIT UP AT 90 DEGREES. MOST OF THIS SHIFT THE PT'S NECK HAS BEEN HYPER-EXTENDED AND HIS NECK HAS BEEN TO PAINFUL TO TURN. THE PT HAS BEEN MEDICATED PER EMAR WITH MORPHINE IV 2MG T/O THIS SHIFT. THE PT HAS NOT HAD A BM THIS SHIFT. CALL LIGHT IN REACH WILL CONTINUE TO MONITOR UNTIL REPORT IS GIVEN TO ONCOMING RN.
--- NOTE | 2022-05-11 18:34 | NUR ---
PT UPDATE.... THE PT WAS VERY AWAKE AND ALERT SITTING UP IN THE BED AT 90 DEGREES FOR DINNER. THE PT DID WELL WITH DRINKING WATER AND MILK WITH NO STRAW AND THE APPLE SAUCE BUT ONCE HE TOOK A BITE OF THE MECH SOFT MEAT WITH NOODLES HE STARTED TO COUGH AND STATED "THAT WENT DOWN TO WRONG TUBE." THIS RN ASSESSED THE PT'S L/S THEY WERE NOT CHANGED FROM EARLIER ASSESSMENTS AND HIS O2 SATS WERE STABLE. WILL CONTINUE TO MONITOR.
--- NOTE | 2022-05-11 19:00 | NUR ---
ASSUMPTION OF CARE UPON PRESENTATION, PATIENT RESTING COMFORTABLY. AROUSABLE TO VOICE. ORIENTED X4. NEURO STABLE.
[2022-05-12 04:59] LABS: BASOPHILS ABSOLUTE AUTO 0.02 K/mm3 (0.00-0.23); BASOPHILS PERCENT AUTO 0 % (0-2); EOSINOPHILS ABSOLUTE AUTO 0.05 K/mm3 (0.00-0.68); EOSINOPHILS PERCENT AUTO 0 % (0-6); Hematocrit 37.9 % (37.0-53.0); Hemoglobin 13.9 g/dL (13.5-17.5); IMMATURE GRAN ABSOLUTE AUTO 0.06 K/mm3 (0.00-0.10); IMMATURE GRAN PERCENT AUTO 1 % (0-1); LYMPHOCYTES ABSOLUTE AUTO 2.11 K/mm3 (0.84-5.20); LYMPHOCYTES PERCENT AUTO 16 % (21-46); MONOCYTES ABSOLUTE AUTO 0.95 K/mm3 (0.16-1.47); MONOCYTES PERCENT AUTO 7 % (4-13); Mean Corpuscular HGB 33.5 pg (26.0-34.0); Mean Corpuscular HGB Conc 36.7 g/dL (31.5-36.5); Mean Corpuscular Volume 91 fL (80-100); Mean Platelet Volume 11.3 fL (9.1-12.4); NEUTROPHILS ABSOLUTE AUTO 9.85 K/mm3 (1.96-9.15); NEUTROPHILS PERCENT AUTO 75 % (41-73); Platelet Count 213 K/mm3 (150-400); RDW Standard Deviation 43.1 fL (35.1-46.3); Red Blood Cell Count 4.15 M/mm3 (4.30-5.90); White Blood Cell Count 13.04 K/mm3 (4.00-11.30)
[2022-05-12 05:18] LABS: Albumin, Blood 2.7 g/dL (3.4-5.0); Albumin/Globulin Ratio 0.8 (0.8-1.8); Bilirubin, Total 0.7 mg/dL (0.1-1.0); Bun/Creatinine Ratio 28.2 (12.0-20.0); Calcium, Blood 8.2 mg/dL (8.5-10.1); Creatinine, Blood 0.82 mg/dL (0.60-1.20); Globulin, Blood 3.3 g/dL (2.2-4.0)
--- NOTE | 2022-05-12 06:44 | NUR ---
SHIFT SUMMARY NEURO: OVERNIGHT, PATIENT INCREASINGLY RESTLESS. CONTINUED TO BE ABLE TO ANSWER ORIENTATION QUESTIONS APPROPRIATELY, BUT SAYING ODD THINGS ABOUT HEARING DRIPPING SOUNDS. OTHERWISE, NEURO EXAM HAS BEEN UNCHANGED. LEFT SIDE NEGLECT STILL PRESENT. PERZE TO COMMAND, R>L. C/O NECK PAIN X2, AND MEDICATED PER JUN. CARDIAC: 100% VPACED. HR 60S. SBP 130-140S. HEMODYNAMICALLY STABLE. RESPIRATORY: 2L NC WHEN SLEEPING. RESPIRATIONS EVEN, UNLABORED. NONPRODUCTIVE COUGH. LUNG SOUNDS CLEAR. GI/: PER REPORT, PATIENT HAD ASPIRATION EPISODE ON DAY SHIFT. HOWEVER, TOLERATED LIQUID INTAKE WELL OVERNIGHT. NO BM. DAMICO CATH IN PLACE, 625CC OUTPUT. CURRENTLY, SLEEPING SOUNDLY. CALL LIGHT WITHIN REACH.
--- NOTE | 2022-05-12 19:23 | NUR ---
SHIFT SUMMARY PTN TRANSFER FROM ICU AT 1800. PTN WAS ALERT AND AWAKE ON ARRIVAL, AND FELL ASLEEP SHORTLY AFTER ARRIVAL. PTN TRANSFER WAS SMOOTH, AND REPORT FROM ICU NURSE RECEIVED. PTN IS ON TELEMETRY, WILL USE 2L O2 AT BEDTIME. DIET MECHANICAL SOFT/ADA. ACCU CHECKS AC/HS. REPORT GIVEN TO COMPASS OPERATOR. PTN IS RESTING QUIETLY.
--- NOTE | 2022-05-13 03:58 | NUR ---
PATIENT HAS BEEN AOX1 THROUGHOUT SHIFT. WAS ACTIVE AND NEEDED VERY FREQUENT REORIENTATION EARLY IN SHIFT BUT WAS ABLE TO SLEEP AFTER PRN MORPHINE ADMINISTRATION. 2 LITERS O2 VIA NC IN PLACE, PATIENT WEARING WITHOUT DIFFICULTY BUT HAS HABIT OF MOUTH BREATHING. UNRECEPTIVE TO REDIRECTION WITH BREATHING PATTERN. RIGHT FOREARM IV INFILTRATED AND REMOVED, POWERGLIDE IN PARISA REMAINS PATENT AND INFUSING WITHOUT DIFFICULTY. CALL LIGHT LEFT WITHIN REACH. BED ALARM IN PLACE.
[2022-05-13 05:07] LABS: BASOPHILS ABSOLUTE AUTO 0.02 K/mm3 (0.00-0.23); BASOPHILS PERCENT AUTO 0 % (0-2); EOSINOPHILS ABSOLUTE AUTO 0.05 K/mm3 (0.00-0.68); EOSINOPHILS PERCENT AUTO 0 % (0-6); IMMATURE GRAN ABSOLUTE AUTO 0.07 K/mm3 (0.00-0.10); IMMATURE GRAN PERCENT AUTO 1 % (0-1); LYMPHOCYTES ABSOLUTE AUTO 2.46 K/mm3 (0.84-5.20); LYMPHOCYTES PERCENT AUTO 17 % (21-46); MONOCYTES ABSOLUTE AUTO 1.11 K/mm3 (0.16-1.47); MONOCYTES PERCENT AUTO 8 % (4-13); Mean Corpuscular HGB 33.3 pg (26.0-34.0); Mean Corpuscular HGB Conc 36.8 g/dL (31.5-36.5); Mean Corpuscular Volume 90 fL (80-100); Mean Platelet Volume 10.9 fL (9.1-12.4); NEUTROPHILS ABSOLUTE AUTO 10.75 K/mm3 (1.96-9.15); NEUTROPHILS PERCENT AUTO 74 % (41-73); Platelet Count 221 K/mm3 (150-400); RDW Standard Deviation 42.5 fL (35.1-46.3); Red Blood Cell Count 4.21 M/mm3 (4.30-5.90); White Blood Cell Count 14.46 K/mm3 (4.00-11.30)
[2022-05-13 05:26] LABS: Albumin, Blood 2.8 g/dL (3.4-5.0); Albumin/Globulin Ratio 0.9 (0.8-1.8); Bilirubin, Total 0.6 mg/dL (0.1-1.0); Bun/Creatinine Ratio 34.9 (12.0-20.0); Calcium, Blood 8.2 mg/dL (8.5-10.1); Creatinine, Blood 0.86 mg/dL (0.60-1.20); Globulin, Blood 3.1 g/dL (2.2-4.0); Potassium, Blood 3.9 mmol/L (3.5-5.5); Total Protein, Blood 5.9 g/dL (6.4-8.2)
--- NOTE | 2022-05-13 18:45 | NUR ---
SHIFT SUMMARY- PT IS ALERT AND ORIENTED TO SELF. INTERMITTENLY SEAMS TO BE AWARE OF SITUATION AND QUICKLY FORGETS. PT REORIENTED MANY TIMES THROUGHOUT DAY. PT COMPLAINED OF PAIN TO THE NECK ANKLES AND "TAIL BONE". NO REDNESS NOTED. MEPIPLEX APPLIED FOR PROTECTION. LEGS ELEVATED USING PILLOWS. BED IS IN THE LOWEST POSITION WITH THE BED ALARM ON AND CALL LIGHT IS WITHIN REACH.
[2022-05-14 06:01] LABS: BASOPHILS ABSOLUTE AUTO 0.04 K/mm3 (0.00-0.23); BASOPHILS PERCENT AUTO 0 % (0-2); EOSINOPHILS ABSOLUTE AUTO 0.16 K/mm3 (0.00-0.68); EOSINOPHILS PERCENT AUTO 1 % (0-6); Hematocrit 38.6 % (37.0-53.0); Hemoglobin 14.3 g/dL (13.5-17.5); IMMATURE GRAN ABSOLUTE AUTO 0.07 K/mm3 (0.00-0.10); IMMATURE GRAN PERCENT AUTO 1 % (0-1); LYMPHOCYTES ABSOLUTE AUTO 2.63 K/mm3 (0.84-5.20); LYMPHOCYTES PERCENT AUTO 19 % (21-46); MONOCYTES ABSOLUTE AUTO 1.11 K/mm3 (0.16-1.47); MONOCYTES PERCENT AUTO 8 % (4-13); Mean Corpuscular HGB 33.7 pg (26.0-34.0); Mean Corpuscular Volume 91 fL (80-100); Mean Platelet Volume 11.3 fL (9.1-12.4); NEUTROPHILS ABSOLUTE AUTO 10.13 K/mm3 (1.96-9.15); NEUTROPHILS PERCENT AUTO 72 % (41-73); Platelet Count 214 K/mm3 (150-400); RDW Coefficient Variation 13.2 % (11.7-14.2); RDW Standard Deviation 43.9 fL (35.1-46.3); Red Blood Cell Count 4.24 M/mm3 (4.30-5.90); White Blood Cell Count 14.14 K/mm3 (4.00-11.30)
[2022-05-14 06:27] LABS: Albumin, Blood 2.7 g/dL (3.4-5.0); Albumin/Globulin Ratio 0.9 (0.8-1.8); Bilirubin, Total 0.6 mg/dL (0.1-1.0); Bun/Creatinine Ratio 29.4 (12.0-20.0); Calcium, Blood 8.3 mg/dL (8.5-10.1); Creatinine, Blood 0.89 mg/dL (0.60-1.20); Globulin, Blood 3.1 g/dL (2.2-4.0); Potassium, Blood 3.8 mmol/L (3.5-5.5); Total Protein, Blood 5.8 g/dL (6.4-8.2)
[2022-05-14] MEDS ORDERED: ZOCOR20 MG PO (09:41)
[2022-05-14] MEDS ORDERED: FINA5 PO (09:42)
[2022-05-14] MEDS ORDERED: PANT40 PO (09:42)
[2022-05-14] MEDS ORDERED: ALLO300 PO (09:43)
[2022-05-14] MEDS ORDERED: ALOGLIPTIN12.5 M7 PO (09:44)
[2022-05-14] MEDS ORDERED: TAMS.4ER PO (09:44)
[2022-05-14] MEDS ORDERED: ELIQUIS5 M2 PO (09:44)
[2022-05-14] MEDS ORDERED: POTCHL20ER PO (09:45)
[2022-05-14] MEDS ORDERED: ALBU90OI INH (09:46)
[2022-05-14] MEDS ORDERED: METO2.5 PO (09:46)
[2022-05-14] MEDS ORDERED: ACET500 PO (09:47)
[2022-05-14] MEDS ORDERED: Flonase 0.05% N16 GM (09:50)
[2022-05-14] MEDS ORDERED: NOVOLOG FL100 UNIT/3 SC (09:53)
[2022-05-14] MEDS ORDERED: SENNA LAXATIVE8.6 MG PO (09:56)
[2022-05-14] MEDS ORDERED: DOCU100 PO (09:57)
--- NOTE | 2022-05-14 13:55 | NUR ---
CONSTIPATION AND GASSY C/O ABOVE SYMPTOMS. V.O. FROM DR. RASHEED FOR DULCOLAX SUPPOSITORY DAILY PRN. EMAR UPDATED.
--- NOTE | 2022-05-14 13:56 | NUR ---
DONAVAN SIGNED INFORMED DR. RASHEED OF UNSIGNED POLST. POSLT SIGNED, COPY MADE AND PLACED IN CHART, ORIGINAL GIVEN TO DAUGHTER MONCHO.
--- NOTE | 2022-05-14 17:13 | NUR ---
SHIFT SUMMARY- PT IS ALERT AND ORIENTED TO SELF. PT CAN STATE HIS NAME AND DATE OF . PT SEEMS TO BE CONFUSED BUT CALM AND COOPERATIVE. SUPPOSITORY ADMINISTERED FOR CONSTIPATION. PT WAS ABLE TO USE BED FIELD AND HAD A SMALL HARD BM BED IS IN THE LOWEST POSITION AND CALL LIGHT WITHIN REACH. HOB AT [address] SCAN ORDERED FOR TODAY
[2022-05-15 05:49] LABS: BASOPHILS ABSOLUTE AUTO 0.05 K/mm3 (0.00-0.23); BASOPHILS PERCENT AUTO 0 % (0-2); EOSINOPHILS ABSOLUTE AUTO 0.17 K/mm3 (0.00-0.68); EOSINOPHILS PERCENT AUTO 1 % (0-6); Hematocrit 39.5 % (37.0-53.0); Hemoglobin 14.7 g/dL (13.5-17.5); IMMATURE GRAN ABSOLUTE AUTO 0.11 K/mm3 (0.00-0.10); IMMATURE GRAN PERCENT AUTO 1 % (0-1); LYMPHOCYTES PERCENT AUTO 19 % (21-46); MONOCYTES ABSOLUTE AUTO 1.36 K/mm3 (0.16-1.47); MONOCYTES PERCENT AUTO 8 % (4-13); Mean Corpuscular HGB 33.7 pg (26.0-34.0); Mean Corpuscular HGB Conc 37.2 g/dL (31.5-36.5); Mean Corpuscular Volume 91 fL (80-100); Mean Platelet Volume 11.2 fL (9.1-12.4); NEUTROPHILS ABSOLUTE AUTO 11.66 K/mm3 (1.96-9.15); NEUTROPHILS PERCENT AUTO 71 % (41-73); Platelet Count 223 K/mm3 (150-400); RDW Coefficient Variation 12.9 % (11.7-14.2); RDW Standard Deviation 42.5 fL (35.1-46.3); Red Blood Cell Count 4.36 M/mm3 (4.30-5.90); White Blood Cell Count 16.45 K/mm3 (4.00-11.30)
--- NOTE | 2022-05-15 06:08 | NUR ---
PATIENT SELPT WELL THROUGH THE NIGHT, ORIENTED TO SELF. C/O NECK AND HEADACHE PAIN TREATED PER MAR WITH GOOD RESULTS. FC DRAINING TO GRAVITY.NO BM THIS SHIFT. RA, VSS. NO OTHER ISSUES TO REPORT.
[2022-05-15 06:15] LABS: Albumin, Blood 2.8 g/dL (3.4-5.0); Albumin/Globulin Ratio 0.9 (0.8-1.8); Bilirubin, Total 0.8 mg/dL (0.1-1.0); Calcium, Blood 8.3 mg/dL (8.5-10.1); Creatinine, Blood 0.84 mg/dL (0.60-1.20); Globulin, Blood 3.1 g/dL (2.2-4.0); Potassium, Blood 3.9 mmol/L (3.5-5.5); Total Protein, Blood 5.9 g/dL (6.4-8.2)
--- NOTE | 2022-05-15 18:42 | NUR ---
SHIFT SUMMARY- PT IS ALERT AND ORIENTED TO SELF. NO BM TODAY. BLOOD GLUCOSE TREATED PER EMAR. NO PRN PAIN MEDS GIVEN THIS SHIFT.
[2022-05-16 04:55] LABS: BASOPHILS ABSOLUTE AUTO 0.04 K/mm3 (0.00-0.23); BASOPHILS PERCENT AUTO 0 % (0-2); EOSINOPHILS ABSOLUTE AUTO 0.13 K/mm3 (0.00-0.68); EOSINOPHILS PERCENT AUTO 1 % (0-6); Hematocrit 40.1 % (37.0-53.0); Hemoglobin 14.5 g/dL (13.5-17.5); IMMATURE GRAN ABSOLUTE AUTO 0.13 K/mm3 (0.00-0.10); IMMATURE GRAN PERCENT AUTO 1 % (0-1); LYMPHOCYTES ABSOLUTE AUTO 2.71 K/mm3 (0.84-5.20); LYMPHOCYTES PERCENT AUTO 17 % (21-46); MONOCYTES ABSOLUTE AUTO 1.19 K/mm3 (0.16-1.47); MONOCYTES PERCENT AUTO 7 % (4-13); Mean Corpuscular HGB 33.3 pg (26.0-34.0); Mean Corpuscular HGB Conc 36.2 g/dL (31.5-36.5); Mean Corpuscular Volume 92 fL (80-100); Mean Platelet Volume 11.1 fL (9.1-12.4); NEUTROPHILS PERCENT AUTO 74 % (41-73); Platelet Count 222 K/mm3 (150-400); RDW Coefficient Variation 12.9 % (11.7-14.2); RDW Standard Deviation 43.8 fL (35.1-46.3); Red Blood Cell Count 4.36 M/mm3 (4.30-5.90)
--- NOTE | 2022-05-16 05:35 | NUR ---
SUMMARY: NO ACUTE EVENTS OVERNIGHT. MEDICATED PER EMAR FOR PAIN IN HEAD AND LEGS. SCDS IN PLACE. PATIENT AOX1-2. VSS. TURNED Q2 HOURS IN BED. DAM[place] IN PLACE WITH GOOD OUTPUT. GLUCOSE ELEVATED AT START OF SHIFT NOTIFIED HOSPITALIST. NO NEW ORDERS. VSS. PATIENT VERY TALKATIVE AND PLEASANT WITH STAFF.
[2022-05-16 05:38] LABS: Albumin, Blood 2.6 g/dL (3.4-5.0); Albumin/Globulin Ratio 0.8 (0.8-1.8); Bilirubin, Total 1.2 mg/dL (0.1-1.0); Bun/Creatinine Ratio 33.7 (12.0-20.0); Calcium, Blood 8.2 mg/dL (8.5-10.1); Creatinine, Blood 0.86 mg/dL (0.60-1.20); Globulin, Blood 3.3 g/dL (2.2-4.0); Potassium, Blood 4.3 mmol/L (3.5-5.5); Total Protein, Blood 5.9 g/dL (6.4-8.2)
--- NOTE | 2022-05-16 17:03 | NUR ---
called about BS [id number]
--- NOTE | 2022-05-16 18:52 | NUR ---
Received report from ongoing nurse. Pt axox1-2. VSS stable. Will continue to monitor. spoke with daughter Janiya and let her know therapeutic case manager will reach out with the next steps of discharge.
--- NOTE | 2022-05-17 05:45 | NUR ---
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 OCCASIONAL C/O HEADACHE. MEDICATED WITH TYLENOL - SEE MAR FOR DETAILS. HOB REMAINS ELEVATED. CONT PULSE OX IN THE 90'S. OTHERWISE HAS BEEN RESTING INTERMITTENTLY. REPOSITIONED INTERMITTENTLY FOR COMFORT. CURRENTLY APPEARS TO BE SLEEPING. CALL LIGHT IN REACH. WILL CONTINUE TO MONITOR
--- NOTE | 2022-05-17 19:13 | NUR ---
No overnight events. Pt sleeping comfortably in bed. VSS stable.
--- NOTE | 2022-05-18 05:15 | NUR ---
SUMMARY: NO ACUTE EVENTS OVERNIGHT. MEDICATED PER EMAR FOR PAIN IN HEAD AND LEGS. SCDS IN PLACE. PATIENT AOX2-3. VSS. TURNED Q2 HOURS IN BED. DAM[place] IN PLACE WITH GOOD OUTPUT. GLUCOSE ELEVATED AT START OF SHIFT NOTIFIED HOSPITALIST. ONE TIME 5U DOSE HUMSLOG. VSS. PATIENT VERY TALKATIVE AND PLEASANT WITH STAFF. PLAN FOR DC HOME TO HOSPICE ON MONDAY WITH DAUGHTER.
--- NOTE | 2022-05-18 17:48 | NUR ---
Received report from ongoing nurse. Pt asleep in bed. Pt axox1-2. VSS stable. Will continue to monitor.
--- NOTE | 2022-05-19 04:17 | NUR ---
Patient resting in bed, no significant events overnight.
[2022-05-19] MEDS ORDERED: LEVE500 PO (09:37)
[2022-05-19] MEDS ORDERED: SOAANZ20 M1 PO (09:47)
--- NOTE | 2022-05-19 10:32 | NUR ---
DISCHARGE SUMMARY PATIENT IS ALERT BUT CONFUSED. PATIENT WAS GIVEN MORNING MEDS. PATIENT IS BEING DISCHARGED HOME ON HOSPICE. [facility] IS TRANSPORTING PATIENT HOME TO DAUGHTER.
== END 2022-05-19 10:22 | disposition hospice, home (50) | DRG 83 ==
LOC: ER 13:36 → ICUE 20:34 → MEDS 20:34 → ICUE 05-09 14:03 → MEDS 05-12 17:50
PROVIDERS: Emergency Medicine; Internal Medicine; Nurse Practitioner Acute Care; Student in an Organized Health Care Education/Training Program; ADMIT Internal Medicine
PROC: 30283B1 Transfusion of Nonautologous 4-Factor Prothrombin Complex Concentrate into Vein, Percutaneous Approach (ICD-10-PCS; principal; 2022-05-08)
DX: S06.5XAA Traumatic subdural hemorrhage with loss of consciousness status unknown, initial encounter (principal); I50.32 Chronic diastolic (congestive) heart failure; E11.9 Type 2 diabetes mellitus without complications; S06.1XAA Traumatic cerebral edema with loss of consciousness status unknown, initial encounter; I48.91 Unspecified atrial fibrillation; E78.5 Hyperlipidemia, unspecified; N40.0 Benign prostatic hyperplasia without lower urinary tract symptoms; I11.0 Hypertensive heart disease with heart failure; K21.9 Gastro-esophageal reflux disease without esophagitis; Z66 Do not resuscitate; I08.1 Rheumatic disorders of both mitral and tricuspid valves; M54.50 Low back pain, unspecified; M54.2 Cervicalgia; M25.552 Pain in left hip; W10.8XXA Fall (on) (from) other stairs and steps, initial encounter; Z96.641 Presence of right artificial hip joint; Z88.2 Allergy status to sulfonamides; Z88.8 Allergy status to other drugs, medicaments and biological substances; Z79.84 Long term (current) use of oral hypoglycemic drugs; Z79.01 Long term (current) use of anticoagulants; Z79.899 Other long term (current) drug therapy; Z79.82 Long term (current) use of aspirin; Z79.4 Long term (current) use of insulin; Z95.0 Presence of cardiac pacemaker; Z87.891 Personal history of nicotine dependence
CPT/HCPCS: 36415; 51701; 51703; 70450; 70496; 71045; 72100; 72125; 72220; 73502; 80048; 80053; 81003; 82947; 83735; 83880; 84443; 84484; 85025; 85027; 85610; 92526; 92610; 93005; 93010; 94760; 94762; 96365; 96375; 97110; 97112; 97162; 97166; 97530; 99285-25; A9270; C1751; J1100; J1815; J1953; J2270; J2405; J3430; J7050; J7168; Q9967